=== PATIENT | female | born 1970 | race Caucasian/White ===

== ENCOUNTER 2017-01-31 07:40 | Emergency (ER) | payer BC ==
[~2017-01-31] VITALS: Ht 160 cm; Wt 59.4 kg
[~2017-01-31 07:40] MED LIST: PAXIL20 MG PO
[2017-01-31 08:05] LABS: MCH 32.6 PG (29.0-34.0); MCHC 33.9 G/DL (30.0-36.0); MCV 96.3 FL (83-99); MEAN PLAT.VOLUME 9.7 uM^3 (9.5-12.4); PLATELET COUNT 315 K/uL (156-360); RBC DIS.WIDTH-CV 12.8 % (11.8-14.6); RBC DIS.WIDTH-SD 45.8 % (39-53); RED BLOOD COUNT 4.57 M/uL (3.80-5.20); WHITE BLOOD COUNT 8.6 K/uL (4.1-10.2)
[2017-01-31 08:12] LABS: CHLORIDE 106 mEq/L (99-109); POTASSIUM 3.8 mEq/L (3.7-5.4); SODIUM 142 mEq/L (136-147)
[2017-01-31 08:14] LABS: GLUCOSE 101 mg/dL (70-99)
[2017-01-31 08:16] LABS: ANION GAP 12 MEQ/L (2-14); TOTAL BILIRUBIN 0.8 mg/dL (0.0-1.0)
[2017-01-31 08:18] LABS: ALKALINE PHOSPHATASE 66 IU/L (3-129); GFR ESTIMATE (CALCULATED) > 59 mL/min/
[2017-01-31 08:19] LABS: UREA NITROGEN (BUN) 12 mg/dL (9-23)
[2017-01-31 08:22] LABS: LIPASE 10 U/L (1.0-51.0)
[2017-01-31 08:29] LABS: QUANTITATIVE HCG < 4.0 MIU/ML
[2017-01-31 11:03] LABS: ADD MIUA? YES; BILIRUBIN NEGATIVE; BLOOD LARGE; COLOR YELLOW ((YELLOW)); GLUCOSE (STRIP) NEGATIVE; KETONES 20; LEUKOCYTES NEGATIVE; NITRITE NEGATIVE; PROTEIN (STRIP) 30; SPECIFIC GRAVITY 1.023 (1.000-1.030)
[2017-01-31 11:13] LABS: BACTERIA RARE /HPF; EPITHELIAL CELLS RARE /HPF; MUCUS TRACE /LPF; RED BLOOD CELLS 40-50 /HPF (0-5); UCUL ADDED? NO; WHITE BLOOD CELLS 0-5 /HPF (0-5)
[2017-01-31] MEDS ORDERED: ZOFRAN4 MG PO (15:09)
[2017-01-31] MEDS ORDERED: CIPRO500 MG PO (15:09)
[2017-01-31] MEDS ORDERED: FLAGYL500 MG PO (15:09)
[2017-01-31] MEDS ORDERED: BENTYL20 MG PO (15:09)
[2017-01-31] MEDS ORDERED: IBUPROFEN400 MG PO (15:10)
[2017-01-31 15:44] VITALS: BP 111/66
== END 2017-01-31 15:45 | disposition home or self-care (01) ==
LOC: EME 07:40
DX: K52.9 Noninfective gastroenteritis and colitis, unspecified (principal); N83.201 Unspecified ovarian cyst, right side; F41.9 Anxiety disorder, unspecified; Z87.891 Personal history of nicotine dependence
CPT/HCPCS: 74177; 76705; 76770; 80053; 81003; 83690; 84702; 85027; 99281; 99285; J1885; J2270; J2405